=== PATIENT | female | born 1935 | race Caucasian/White ===

== ENCOUNTER 2016-04-20 14:56 | Inpatient (IN) ==
[2016-04-20] MEDS ORDERED: IPRATROPIUM/ALBUTEROL 3 ML AMPUL.NEB NEB ONE ×2 (15:07→15:08)
--- NOTE | 2016-04-20 15:10 | Emergency Department Note ---
SOB HPI - General Chief Complaint: Shortness of Breath/Dyspnea Stated Complaint: sob, pneumonia Time Seen by Provider: 04/20/16 15:01 Source: patient, EMS Mode of arrival: EMS Limitations: no limitations - History of Present Illness 80-year-old female who was seen on 04/13 a right middle lobe pneumonia. Patient refused admission. States she's been having increasing shortness of breath at home. key account manager arrived she's been put on CPAP. hx of copd and diabetes was put on rocephlin and zithromax (allergic to levaquin) afebrile - Related Data Home Medications Medication Instructions Recorded Confirmed Albuterol Sulfate 2.5 mg IH TID PRN 09/02/14 04/20/16 Aspirin [[place] Aspirin] 81 mg PO QDAY 09/02/14 04/20/16 Flaxseed [Flaxseed Oil] 1,300 mg PO QDAY 09/02/14 04/20/16 Omeprazole [PriLOSEC] 20 mg PO ACB 09/02/14 04/20/16 ezetimibe 10 mg tablet 10 mg PO QDAY 02/22/15 04/20/16 krill oil 500 mg capsule 500 mg PO DAILY 02/22/15 04/20/16 potassium chloride ER 20 mEq 20 meq PO ONCE 02/22/15 04/20/16 tablet,extended release(part/cryst) Ascorbic Acid [Vitamin C] 1,000 mg PO DAILY 04/20/16 04/20/16 Vitamin A 8,000 unit PO DAILY 04/20/16 04/20/16 Previous Rx's Medication Instructions Recorded Meclizine [Antivert] 25 mg PO TIDP PRN #20 tab 09/02/14 nitroglycerin 0.4 mg sublingual 0.4 mg SUBLINGUAL Q5M PRN #30 tab 09/22/14 tablet scopolamine 1.5 mg transdermal 1 patch TRANSDERMA Q3D PRN #3 patch 09/22/14 patch (1 mg over 3 days) insulin aspart 100 unit/mL 3 unit SUB-Q TID PRN #3 ml 11/16/14 subcutaneous cartridge levalbuterol HFA 45 mcg/actuation 1 inh INHALATION Q4 PRN 30 Days 07/15/15 aerosol inhaler Diabetic Shoes #1 each 09/22/15 lisinopril 5 mg tablet 5 mg PO QDAY #30 tab 12/20/15 pen needle, diabetic 32 gauge x See Dose Instructions .ROUTE 12/27/15" .MEDSUPPLY #100 each cefuroxime axetil 500 mg tablet 500 mg PO Q12H PRN 7 Days 01/06/16 insulin detemir 100 unit/mL (3 mL) 20 unit SUB-Q QDAY #15 ml 02/29/16 subcutaneous pen levothyroxine 25 mcg tablet 25 mcg PO QDAY 30 Days 02/29/16 torsemide 20 mg tablet See Dose Instructions PO QDAY #135 02/29/16 tab atorvastatin 80 mg tablet 80 mg PO ONCE 30 Days 03/27/16 budesonide-formoterol HFA 160 2 puff INHALATION BID #10.2 g 03/29/16 mcg-4.5 mcg/actuation aerosol inhaler hydrocodone 5 mg-acetaminophen 325 1 tab PO BID PRN #60 tab 04/07/16 mg tablet Azithromycin [Zithromax] 250 mg PO DAILY #6 tablet 04/13/16 Cefuroxime [Ceftin] 500 mg PO Q12 #20 tablet 04/13/16 Allergies Allergy/AdvReac Type Severity Reaction Status Date / Time levofloxacin [From LEVAQUIN] Allergy Intermediate TENDONITIS Verified 04/13/16 16:05 levothyroxine sodium Allergy Mild EYES Verified 04/13/16 16:05 [LEVOTHYROXINE SODIUM] liothyronine [LIOTHYRONINE] Allergy Mild FEET AND Verified 04/13/16 16:05 ANKLE EDEMA AND NOSE BLEED Bisphosphonates Allergy Unknown Unknown Verified 04/13/16 16:05 fentanyl [FENTANYL] Allergy Unknown OBTUNDED Verified 04/13/16 16:05 rosuvastatin [From Crestor] Allergy Unknown Unknown Verified 04/13/16 16:05 spironolactone Allergy Unknown Unknown Verified 04/13/16 16:05 trimethoprim [From Bactrim] Allergy Unknown Hives Verified 04/13/16 16:05 sulfamethoxazole AdvReac Mild RASH AND Verified 04/13/16 16:05 [From SEPTRA] ITCH morphine [MORPHINE] AdvReac Unknown GI Upset Verified 04/13/16 16:05 From MACROBID Allergy Intermediate Rash Uncoded 03/23/16 08:54 TAPE-CAN USE PAPER AdvReac Severe PEELS SKIN Uncoded 03/23/16 08:54 OFF From JANUVIA AdvReac Intermediate Nausea/Vomi Uncoded 03/23/16 08:54 ting Review of Systems All systems ED: reviewed and negative except as stated. Constitutional: Reports: fever Eyes: Denies: eye pain ENT ED: Denies: ear pain Cardiovascular: Denies: chest pain, palpitations Respiratory: Reports: cough, dyspnea Gastrointestinal: Denies: abdominal pain, nausea Genitourinary: Denies: as per HPI, urgency Past Medical History - Past Medical History Medical history: Reports: COPD, CVA, diabetes, myocardial infarction, other Surgical history ED: Reports: breast surgery, cholecystectomy, coronary bypass ( CABG) - Social History smoking status: Former smoker Alcohol use: Reports: None, Occasionally Drug use: Reports: none Physical Exam - General Limitations: no limitations General appearance: alert - Eye Eye exam: Present: normal appearance, PERRL - ENT ENT exam: normal exam, normal oropharynx - Neck Neck exam: Present: normal inspection, full ROM. Absent: trachea midline - Chest Chest inspection: Present: normal inspection, symmetric chest wall rise - Respiratory Respiratory exam: Present: normal lung sounds bilaterally, wheezes. Absent: respiratory distress - Cardiovascular Cardiovascular exam: Present: regular rate, normal rhythm - Abdominal Exam Abdominal exam: Present: soft. Absent: distention - Extremities Exam Extremities exam: Present: normal inspection, full ROM - Back Exam Back exam: Present: normal inspection, full ROM Course Vital Signs Temperature 98.0 F 04/20/16 14:57 Pulse Rate 138 H 04/20/16 14:57 Respiratory Rate 23 04/20/16 14:57 Blood Pressure 138/58 04/20/16 14:57 Pulse Oximetry (%) 100 04/20/16 14:57 Temperature 98.0 F 04/20/16 14:57 Pulse Rate 138 H 04/20/16 14:57 Respiratory Rate 30 H 04/20/16 15:34 Blood Pressure 138/58 04/20/16 14:57 Pulse Oximetry (%) 100 04/20/16 14:57 Shortness of Breath/Dyspnea - MDM Narrative Medical decision making narrative: see on 10/11 for rll pneumonia but refused admission. worst today with sob.. Chest xray show rll pneumonia abg's performed - Lab Data Result diagrams: 04/20/16 15:10 04/20/16 15:10 Disposition Referrals: Garrison Rodriguez PA-C [Primary Care Provider] -
--- NOTE | 2016-04-20 15:39 | XRay Report ---
HISTORY: Reason for Exam:dyspnea and right lower lobe pneumonia FINDINGS: There is a mild residual interstitial infiltrate in the right lower lobe. There has been moderate improvement since 04/13/16. There is blunting of the right costophrenic sulcus due to a residual small pleural effusion. The heart size is normal. There are clips in the mediastinum following prior coronary bypass surgery. There are also clips in the axillary portion of the right breast. Sclerotic bone is seen in the upper thoracic spine. This is a chronic stable finding. IMPRESSION: Improving right lower lobe pneumonia Interpreted and Authenticated by: Tj Bella 04/20/16
[2016-04-20] MEDS ORDERED: cefTRIAXone 1 GM in DEXTROSE 5% IN WATER 50 ML IV ONE (15:56)
[2016-04-20] MEDS ORDERED: AZITHROMYCIN 500 MG in DEXTROSE 5% IN WATER 250 ML IV ONE (15:56)
[2016-04-20 16:25] LABS: Basophils # (Auto) 0 K/mcL (0.0-0.3); Basophils % (Auto) 0.2 % (0.0-2.0); Eosinophils # (Auto) 0.3 K/mcL (0.0-0.7); Eosinophils % (Auto) 1.2 % (0.0-7.0); Granulocytes % (Auto) 76.5 % (38.0-78.0); Lymphocytes # (Auto) 2.9 K/mcL (1.5-4.8); Lymphocytes % (Auto) 12.5 % (15.5-49.0); Mean Cell Volume 91.5 fL (80.0-100.0); Mean Corpuscular HGB Conc 32.2 g/dL (31.0-36.0); Mean Corpuscular Hemoglobin 29.5 pg (26.0-34.0); Monocytes # (Auto) 2.3 K/mcL (0.1-0.9); Monocytes % (Auto) 9.6 % (1.0-9.0); Platelet Count 338 K/mcL (140-440); Red Cell Distribution Width 15.8 % (11.5-14.5)
[2016-04-20 16:47] LABS: Creatine Kinase MB 1.3 ng/ml (0-2.9)
[2016-04-20 16:51] LABS: proBNP 580.7 pg/ml (0-450)
[2016-04-20 16:54] LABS: ALT/SGPT 19 U/l (0-40); Albumin 3.2 gm/dL (3.2-5.2); Albumin/Globulin Ratio 1.1 (1.0-2.3); Alkaline Phosphatase 59 U/L (39-117); Blood Urea Nitrogen 28 mg/dl (8-23)
[2016-04-20] MEDS ORDERED: 0.9 % SODIUM CHLORIDE 1,000 ML IV ONE (17:33)
[2016-04-20] MEDS ORDERED: 0.9 % SODIUM CHLORIDE 1,000 ML IV SCH (17:45)
--- NOTE | 2016-04-20 20:29 | Internal Med History&Physical ---
Medical - H&P: HPI Patient information: Note initiated : 04/20/16 at 8:20 pm Service Date, if different from initiated Date: [] Patient: Cristine Francis 80 y/o F admitted on for sob, pneumonia. Chief Complaint: [] History of present illness: Ms. Francis is a 80 year old female with a complex past medical history who presents to the ER today for shortness of breath. The patient had presented on the 9 of this month, to the ER for shortness of breath, was diagnosed with a pneumonia. She was offered admission then, but she declined and signed her self AMA. The patient went home on po antibiotics ( ceftin/ zithromax), she seemed to be improving, however after 3-4 days she started to decline again. Since yesterday she has been more short of breath, on minimal exertion. The patient this Afternoon was sob at rest, and therefore decided to Call EMS, she was noted by EMS to be in respiratory distress and was started on cpap, which was transitioned to bipap in the ER. The patient on my eval still notes to be short of breath at rest worse with minimal activity, At baseline she is chr short of breath on regular activity. NYHA class 3 at baseline, uses 2 L of oxygen. The patietn also admits to having cough with yellow, brown sputum, no hemoptysis. - Constitutional Constitutional: Present: fatigue. Absent: chills, fever(s) - EENT Eyes: Absent: blurry vision, diplopia Nose, mouth and throat: Absent: bleeding gums, change in voice - Cardiovascular Cardiovascular: Present: rapid heart rate. Absent: chest pain, palpatations, pedal edema, syncope - Respiratory Respiratory: Present: cough, dyspnea, dyspnea on exertion, excessive phlegm production, change in phlegm color - Gastrointestinal Gastrointestinal: Present: nausea. Absent: constipation, vomiting - Genitourinary Genitourinary: Absent: hematuria, urinary frequency, urinary urgency - Musculoskeletal Musculoskeletal: Absent: stiffness, tingling - Integumentary Integumentary: Absent: wounds, jaundice - Neurological Neurological: Present: vertigo. Absent: focal weakness, frequent falls, headache(s), sensory deficit, syncope - Psychiatric Psychiatric: Absent: anxiety, confusion - Endocrine Endocrine: Absent: polydipsia, polyphagia, polyuria - Hematologic/Lymphatic Hematologic/Lymphatic: Absent: easy bleeding, easy bruising - Allergic/Immunologic Allergic/Immunologic: Absent: throat swelling, itchy eyes, uticaria Medical - H&P: [facility] Medical history: Medical History Bronchitis (Acute) Left against medical advice (Acute) RLL pneumonia (Acute) Skin tear of hand without complication (Acute) Upper respiratory infection (Acute) Urinary tract infection (Acute) Arteriosclerotic vascular disease (Chronic) Benign paroxysmal positional vertigo (Chronic) CVA (cerebral vascular accident) (Chronic 06/22/14) Chronic obstructive pulmonary disease (Chronic) Coronary artery disease (Chronic) Coronary atherosclerosis of [place] coronary vessel (Chronic) Diabetes mellitus (Chronic) 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) Dysmetabolic syndrome X (Chronic) Glaucoma (Chronic) Hiatal hernia (Chronic) History of compression fracture of spine (Chronic) History of peptic ulcer disease (Chronic) Hypercholesterolemia (Chronic) Hyperlipidemia (Chronic) Hypertension, essential (Chronic) Hypothyroidism (Chronic) Hypothyroidism, acquired (Chronic) Malignant neoplasm of breast (Chronic) Myocardial infarction, old (Chronic) Osteoarthritis (Chronic) Osteoporosis (Chronic) Uncontrolled type 2 diabetes mellitus (Chronic) Surgical history: Past Surgical History History of breast surgery (Chronic) History of cardiac cath (Chronic) History of hysterectomy (Chronic) History of open heart surgery (Chronic) Hx of coronary artery bypass graft (Chronic) S/P skin biopsy (Chronic 02/05/13) Family history: reviewed and not pertinent Social history: lives with significant other former smoker, social etoh Medical - H&P: Meds Home Medications Medication Instructions Recorded Confirmed Type Albuterol Sulfate 2.5 mg IH TID PRN 09/02/14 04/20/16 History Aspirin [[place] Aspirin] 81 mg PO QDAY 09/02/14 04/20/16 History Flaxseed [Flaxseed Oil] 1,300 mg PO QDAY 09/02/14 04/20/16 History Omeprazole [PriLOSEC] 20 mg PO ACB 09/02/14 04/20/16 History ezetimibe 10 mg tablet 10 mg PO QDAY 02/22/15 04/20/16 History krill oil 500 mg capsule 500 mg PO DAILY 02/22/15 04/20/16 History potassium chloride ER 20 mEq 20 meq PO ONCE 02/22/15 04/20/16 History tablet,extended release(part/cryst) Ascorbic Acid [Vitamin C] 1,000 mg PO DAILY 04/20/16 04/20/16 History Vitamin A 8,000 unit PO DAILY 04/20/16 04/20/16 History Allergies Allergy/AdvReac Type Severity Reaction Status Date / Time levofloxacin [From LEVAQUIN] Allergy Intermediate TENDONITIS Verified 04/13/16 16:05 levothyroxine sodium Allergy Mild EYES Verified 04/13/16 16:05 [LEVOTHYROXINE SODIUM] liothyronine [LIOTHYRONINE] Allergy Mild FEET AND Verified 04/13/16 16:05 ANKLE EDEMA AND NOSE BLEED Bisphosphonates Allergy Unknown Unknown Verified 04/13/16 16:05 fentanyl [FENTANYL] Allergy Unknown OBTUNDED Verified 04/13/16 16:05 rosuvastatin [From Crestor] Allergy Unknown Unknown Verified 04/13/16 16:05 spironolactone Allergy Unknown Unknown Verified 04/13/16 16:05 trimethoprim [From Bactrim] Allergy Unknown Hives Verified 04/13/16 16:05 sulfamethoxazole AdvReac Mild RASH AND Verified 04/13/16 16:05 [From SEPTRA] ITCH morphine [MORPHINE] AdvReac Unknown GI Upset Verified 04/13/16 16:05 From MACROBID Allergy Intermediate Rash Uncoded 03/23/16 08:54 TAPE-CAN USE PAPER AdvReac Severe PEELS SKIN Uncoded 03/23/16 08:54 OFF From JANUVIA AdvReac Intermediate Nausea/Vomi Uncoded 03/23/16 08:54 ting Medical - H&P: Exam - Constitutional Vitals: Temp Pulse Resp BP Pulse Ox 98.2 F 62 21 141/57 95 04/20/16 17:44 04/20/16 19:30 04/20/16 19:30 04/20/16 19:30 04/20/16 19:51 General appearance: cooperative, no no acute distress - Head Head exam: Present: atraumatic, normal inspection, normocephalic - Eye Eye exam: Present: PERRL. Absent: periorbital swelling, periorbital tenderness , scleral icterus - ENT ENT exam: Present: mucous membranes dry, normal exam, normal external ear exam - Neck Neck exam: Present: normal inspection - Respiratory Respiratory exam: Present: normal respiratory exam, prolonged expiratory phase, wheezes. Absent: accessory muscle use, respiratory distress, rhonchi - Cardiovascular Cardiovascular exam: Present: irregular rhythm, +S1, +S2, tachycardia - GI/Abdominal GI/Abdominal exam: Present: normal bowel sounds, soft. Absent: firm, guarding, rigid, tenderness - Extremities Exam Extremities exam: Present: Foot pink and warm, neurovascular intact. Absent: pedal edema, tenderness - Back Exam Back exam: Present: normal inspection. Absent: CVA tenderness (L), CVA tenderness (R), paraspinal tenderness - Neurological Exam Neurological exam: Present: alert, CN II-XII intact, oriented X3. Absent: motor sensory deficit - Psychiatric Psychiatric exam: Absent: agitated, anxious - Skin Skin exam: Present: normal color. Absent: cyanosis, rash, urticaria, vesicles Medical - H&P: Reslt - Labs CBC & Chem 7: 04/20/16 15:10 04/20/16 15:10 Labs: Short CBC 04/20/16 Range/Units 15:10 WBC 23.5 H (4.5-11.0) K/mcL Hgb 12.4 (12.0-15.0) g/dL Hct 38.4 (36.0-48.0) % Plt Count 338 (140-440) K/mcL BMP 04/20/16 15:10 Sodium 136 Potassium 3.1 L Chloride 92 L Carbon Dioxide 28 BUN 28 H Creatinine 1.6 H Glucose 136 H Calcium 8.7 Cardiac Enzymes 04/20/16 04/20/16 04/20/16 Range/Units 15:10 15:10 18:24 Total Creatine Kinase 29 (24-170) IU/L CK-MB (CK-2) 1.3 (0-2.9) ng/ml Troponin T 0.04 H* 0.03 (0-0.03) ng/ml Liver Function 04/20/16 Range/Units 15:10 Total Bilirubin 0.7 (0.0-1.0) mg/dL AST 19 (0-37) U/l ALT 19 (0-40) U/l Alkaline Phosphatase 59 (39-117) U/L Albumin 3.2 (3.2-5.2) gm/dL - ABG Interpretation Interpretation: respiratory alkalosis - EKG Data -: EKG Reviewed by Myself Rate: tachycardia - EKG Data Prior EKG available for review: yes When compared to previous EKG: there is no significant change EKG comments: 04/20/16 20:33 multiple pac/ variable HR, variable p waves, likely multifocal atrial tachycardia Medical - H&P: A/P (1) Sepsis Current visit: Yes Status: Acute (2) Acute and chronic respiratory failure Current visit: Yes Status: Acute (3) Demand ischemia of myocardium Current visit: Yes Status: Acute (4) RLL pneumonia Current visit: No Status: Acute (5) Hypertension, essential Current visit: No Status: Chronic (6) Uncontrolled type 2 diabetes mellitus Current visit: No Status: Chronic (7) COPD with acute exacerbation Current visit: Yes Status: Acute - Narrative A/P Narrative: The patient with multiple medical problems presented to the clinic with acute on chr respiratory failure, sepsis, secondary to pna and copd exacerbation. She does have elevated bnp, but clinmically seems to be euvolumic. Pneumonia- Await cultures, treat with IV rocephin and zithromax, monitor for response, if does not improve, escalate antibiotics Await cultures COPD exacerbation- Duonebs, IV steroids, zithromax, BIPAP support as needed. Sepsis- PNA, elevated hr, elevated wbc, treat with abx, monitor, bp st able, lactate not elevated. Chr resp failure- at 2L home oxygen, will continue oxygen supplementation for now. Mild elevation of troponin likley demand ischemia from copd and tachcyardia, troponin trending down, no chest pain. DVT hep s q Diet cardiac Code full DM- Sliding scale insulin, continue home dose of levemir Will resume home medications for chr medical conditions.
[2016-04-20] MEDS ORDERED: SENNOSIDES 1 TABLET PO PRN (20:45)
[2016-04-20] MEDS ORDERED: POTASSIUM CHLORIDE 20 MEQ TABLET PO SCH (20:45)
[2016-04-20] MEDS ORDERED: PROMETHAZINE 25 MG/ML VIAL IV PRN (20:45)
[2016-04-20] MEDS ORDERED: NITROGLYCERIN 0.4 MG TAB.SUBL SL PRN (20:45)
[2016-04-20] MEDS ORDERED: MECLIZINE 25 MG TABLET PO PRN (20:45)
[2016-04-20] MEDS ORDERED: ONDANSETRON 4 MG/2 ML VIAL IV PRN (20:45)
[2016-04-20] MEDS ORDERED: HYDROcodone/APAP 5/325MG TABLET PO PRN (20:45)
[2016-04-20] MEDS ORDERED: DEXTROSE 50% 50 ML VIAL IV PRN (20:45)
[2016-04-20] MEDS ORDERED: POTASSIUM CHLORIDE 40 MEQ in DEXTROSE 5% IN WATER 250 ML IV ONE (22:05)
[2016-04-20] MEDS: HEPARIN 5,000 UNIT/ML VIAL SQ SCH (22:49)
[2016-04-20] MEDS: INSULIN LISPRO 1 UNIT/0.01 ML UNIT SQ SCH (22:50)
[2016-04-20] MEDS: ATORVASTATIN 40 MG TABLET PO SCH (22:50)
[2016-04-20] MEDS: 0.9 % SODIUM CHLORIDE 10 ML SYRINGE IV SCH (22:52)
[2016-04-20] MEDS: methylPREDNISolone SOD SUCC 125 MG/2 ML VIAL IV SCH (22:53)
[2016-04-20] MEDS: IPRATROPIUM/ALBUTEROL 3 ML AMPUL.NEB NEB SCH (22:58)
[2016-04-21 00:10] LABS: Hemoglobin A1C 7.9 % HGB (4.0-6.0)
[2016-04-21] MEDS ORDERED: POTASSIUM CHLORIDE 40 MEQ in DEXTROSE 5% IN WATER 500 ML IV ONE (00:49)
[2016-04-21] MEDS ORDERED: POTASSIUM CHLORIDE 20 MEQ/10 ML VIAL IV ONE (01:01)
[2016-04-21] MEDS: IPRATROPIUM/ALBUTEROL 3 ML AMPUL.NEB NEB SCH ×5 (02:48→23:33)
[2016-04-21] MEDS: 0.9 % SODIUM CHLORIDE 10 ML SYRINGE IV SCH ×3 (05:36→21:14)
[2016-04-21] MEDS: methylPREDNISolone SOD SUCC 125 MG/2 ML VIAL IV SCH ×3 (05:36→21:14)
[2016-04-21 06:30] LABS: Mean Cell Volume 91.6 fL (80.0-100.0); Mean Corpuscular HGB Conc 32.1 g/dL (31.0-36.0); Mean Corpuscular Hemoglobin 29.4 pg (26.0-34.0); Platelet Count 282 K/mcL (140-440); Red Cell Distribution Width 15.7 % (11.5-14.5)
[2016-04-21 06:58] LABS: ALT/SGPT 15 U/l (0-40); Albumin 2.8 gm/dL (3.2-5.2); Albumin/Globulin Ratio 0.9 (1.0-2.3); Alkaline Phosphatase 66 U/L (39-117); Bilirubin,Direct < 0.2 mg/dL (0.0-0.3); Blood Urea Nitrogen 25 mg/dl (8-23); Gamma Glutamyl Transpeptidase 32 U/L (5-36); Magnesium 1.9 mg/dL (1.6-2.5); Phosphorous 3.4 mg/dL (2.7-4.5); Uric Acid 5.7 mg/dL (2.5-8.0)
[2016-04-21 07:32] LABS: Band Neutrophils % 10 % (0-10); Lymphocytes % 3 % (15-49); Monocytes % (Manual) 3 % (1-9); Platelet Estimate NORMAL (NORMAL); RBC Morphology NORMAL (NORMAL); Segmented Neutrophils % 84 % (38-78)
--- NOTE | 2016-04-21 07:57 | Internal Med Progress Note ---
Medical - PN: Subj Patient information: Note initiated : 04/21/16 at 7:54 am Service Date, if different from initiated Date: [] Patient: Cristine Francis 80 y/o F admitted on 04/20/16 for sob, pneumonia. Chief Complaint: [] Interval history: Patient seen examined, no acute overnight events HR improving still has Multifocal atrial tachycardia. Patient did not sleep well, but otherwise has no complaints Did not need bipap at nibght Oxygen needs increased when sleeping, but back to baseline 2 L in the morning. Labs reviewed, wbc improved. microbiology neg echo pending. Pertinent ROS: Denies headache, dizziness Denies chest pain, palpitations cough present, sob abset at rest. Denies abdominal pain, nausea or vomiting. - Constitutional Vitals: Vital Signs Temp Pulse Resp BP Pulse Ox 98.8 F 99 H 19 144/48 90 04/21/16 04:00 04/21/16 07:00 04/21/16 07:00 04/21/16 07:00 04/21/16 07:00 Period Temp Pulse Resp BP Sys/Coreas Pulse Ox Last 24 Hr 98.8 F-99.4 F 62-117 15-25 144-172/45-69 88-99 Intake and Output 04/20/16 04/21/16 04/21/16 21:59 05:59 13:59 Intake Total 1000 / 1300 50 / 50 Output Total 345 / 345 180 / 180 Balance 1000 / 1300 -295 / -295 -180 / -180 Weight 169 lb 12.8 oz Intake & Output: Intake & Output 04/20/16 04/21/16 04/21/16 21:59 05:59 13:59 Intake Total 1000 / 1300 50 / 50 Output Total 345 / 345 180 / 180 Balance 1000 / 1300 -295 / -295 -180 / -180 Weight 169 lb 12.8 oz Intake: IV 1000 / 1000 Sodium Chloride 0.9% 1, 1000 / 1000 000 ml @ Wide Open IV BOLUS ONE Rx#:[id number] Oral 50 / 50 Output: Urine Catheter Amount 345 / 345 180 / 180 Exam: Constitutional; Afebrile, cooperative, alert, not in distress. Eyes- No icterus, Pupils equal, reactive, No periorbital swelling Ears- Ext ear normal, hearing normal to conversation. Neck- Midline trachea, supple Respiratory system: Air Entry equal on both sides,improved air entry, but still prolonged exp phase CVS- Rate rhythm irregular, S1,S2 heard, no gallop, no rub. Abdomen- Soft nontender abdomen, no organomegaly, no tenderness, no guarding or rigidity, [employer]ER- AOOx3, moving all extremities, no focal deficit noted. Medical - PN: Obj Da - Labs CBC & Chem 7: 04/21/16 05:40 04/21/16 05:40 Labs: Abnormal Lab Results 04/21/16 04/21/16 05:40 05:40 WBC 17.4 H RBC 3.60 L Hgb 10.6 L Hct 33.0 L RDW 15.7 H Seg Neutrophils % 84 H Lymphocytes % 3 L Chloride 95 L BUN 25 H Creatinine 1.6 H Glucose 364 H Calcium 8.2 L Lactate Dehydrogenase 408 H Total Protein 5.8 L Albumin 2.8 L Albumin/Globulin Ratio 0.9 L Meds: Medications Acetaminophen/Hydrocodone Bitart ([place] 5/325mg) 1 tab PO BIDP PRN PRN Reason: Pain Albuterol/Ipratropium (Duoneb) 3 ml NEB Q4HRT [facility] Last Admin: 04/21/16 02:48 Dose: 3 ml Aspirin (Aspirin) 81 mg PO QDAY [facility] Atorvastatin Calcium (Lipitor) 80 mg PO HS [facility] Last Admin: 04/20/16 22:50 Dose: 80 mg Dextrose (Dextrose 50%) 0 ml IV UD PRN PRN Reason: Hypoglycemia Diagnostic Test (Pha) (Accu-Chek) 1 each FS ACHS [facility] Last Admin: 04/20/16 22:39 Dose: Not Given Ezetimibe (Zetia) 10 mg PO QDAY [facility] Heparin Sodium (Porcine) (Heparin) 5,000 unit SQ Q12 [facility] Last Admin: 04/20/16 22:49 Dose: 5,000 unit Azithromycin 250 mg/ Dextrose 250 mls @ 250 mls/hr IV DAILY [facility] Stop: 04/24/16 09:59 Ceftriaxone Sodium 1 gm/ (Dextrose) 50 mls @ 100 mls/hr IV DAILY [facility] Insulin Glargine (Lantus) 20 unit SQ DAILY [facility] Insulin Human Lispro (Humalog) 0 unit SQ ACHS [facility] PRN Reason: Protocol Levothyroxine Sodium (Synthroid) 25 mcg PO ACB [facility] Lisinopril (Zestril) 5 mg PO QDAY [facility] Meclizine HCl (Antivert) 25 mg PO TIDP PRN PRN Reason: Vertigo Methylprednisolone Sodium Succinate (Solu-Medrol) 62.5 mg IV Q8 [facility] Last Admin: 04/21/16 05:36 Dose: 62.5 mg Nitroglycerin (Nitrostat) 0.4 mg SL Q5M PRN PRN Reason: Chest Pain Ondansetron HCl (Zofran) 4 mg IV Q4-6HP PRN PRN Reason: Nausea And Vomiting Last Admin: 04/20/16 23:29 Dose: 4 mg Pantoprazole Sodium (Protonix) 40 mg IV QAMAC [facility] Promethazine HCl (Phenergan) 12.5 mg IV Q4-6HP PRN PRN Reason: Nausea And Vomiting Senna (Senokot) 2 tab PO HSP PRN PRN Reason: Constipation Sodium Chloride (Saline Flush) 10 ml IV Q8 [facility] Last Admin: 04/21/16 05:36 Dose: 10 ml Torsemide (Demadex) 20 mg PO DAILY [facility] Medical - PN: A/P - Time Spent With Patient Total time spent is greater than 50% in coordination of care (as documented) at patient's floor/unit and/or counseling patient: (1) Sepsis Status: Acute Current Visit: Yes (2) Acute and chronic respiratory failure Status: Acute Current Visit: Yes (3) Demand ischemia of myocardium Status: Acute Current Visit: Yes (4) RLL pneumonia Status: Acute Current Visit: No (5) Hypertension, essential Status: Chronic Current Visit: No (6) Uncontrolled type 2 diabetes mellitus Status: Chronic Current Visit: No (7) COPD with acute exacerbation Status: Acute Current Visit: Yes - Narrative A/P Narrative: The patient is stable no need for bipap overnight continue with IV antibiotics, rocephin and zithromax continue steroids and duonebs Monitor on telemeter for now, PT eval. If continues to improve tranasition ot oral steroids in AM, High glucose noted,- will increase dose of sliding scale insulin. d/c planning home vs snf. Medical - PN: Qual - VTE Deep Vein Thrombosis/Pulmonary Embolism Present on Admission: No
[2016-04-21] MEDS: LEVOTHYROXINE 25 MCG TABLET PO SCH (07:58)
[2016-04-21] MEDS: PANTOPRAZOLE 40 MG VIAL IV SCH (07:58)
[2016-04-21] MEDS: INSULIN LISPRO 1 UNIT/0.01 ML UNIT SQ SCH ×5 (08:14→21:03)
[2016-04-21] MEDS ORDERED: LISINOPRIL 5 MG TABLET PO SCH (09:00)
[2016-04-21] MEDS ORDERED: TORSEMIDE 10 MG TABLET PO SCH (09:00)
[2016-04-21] MEDS: ASPIRIN 81 MG TAB.CHEW PO SCH (09:02)
[2016-04-21] MEDS: EZETIMIBE 10 MG TABLET PO SCH (09:02)
[2016-04-21] MEDS: INSULIN GLARGINE, HUMAN 1 UNIT/0.01 ML SQ SCH (09:03)
[2016-04-21] MEDS: HEPARIN 5,000 UNIT/ML VIAL SQ SCH ×2 (09:03→21:04)
[2016-04-21] MEDS: cefTRIAXone 1 GM in DEXTROSE 5% IN WATER 50 ML IV SCH (09:03)
[2016-04-21] MEDS: AZITHROMYCIN 250 MG in DEXTROSE 5% IN WATER 250 ML IV SCH (12:51)
[2016-04-21] MEDS ORDERED: 0.9 % SODIUM CHLORIDE 500 ML IV ONE ×2 (13:09→14:38)
[2016-04-21] MEDS: ATORVASTATIN 40 MG TABLET PO SCH (21:02)
[2016-04-22] MEDS ORDERED: 0.9 % SODIUM CHLORIDE 500 ML IV ONE (03:03)
[2016-04-22] MEDS: IPRATROPIUM/ALBUTEROL 3 ML AMPUL.NEB NEB SCH ×6 (03:13→23:04)
[2016-04-22 05:41] LABS: Basophils # (Auto) 0 K/mcL (0.0-0.3); Basophils % (Auto) 0 % (0.0-2.0); Eosinophils # (Auto) 0.3 K/mcL (0.0-0.7); Eosinophils % (Auto) 1.3 % (0.0-7.0); Granulocytes % (Auto) 92.3 % (38.0-78.0); Lymphocytes # (Auto) 0.6 K/mcL (1.5-4.8); Mean Cell Volume 92.7 fL (80.0-100.0); Mean Corpuscular Hemoglobin 29.7 pg (26.0-34.0); Monocytes # (Auto) 0.7 K/mcL (0.1-0.9); Monocytes % (Auto) 3.4 % (1.0-9.0); Platelet Count 283 K/mcL (140-440); RBC 3.65 M/mcL (4.00-5.20); Red Cell Distribution Width 15.7 % (11.5-14.5)
[2016-04-22 06:10] LABS: ALT/SGPT 16 U/l (0-40); Albumin 2.7 gm/dL (3.2-5.2); Albumin/Globulin Ratio 0.8 (1.0-2.3); Alkaline Phosphatase 66 U/L (39-117); Bilirubin,Direct < 0.2 mg/dL (0.0-0.3); Blood Urea Nitrogen 35 mg/dl (8-23); Gamma Glutamyl Transpeptidase 28 U/L (5-36); Phosphorous 3.1 mg/dL (2.7-4.5); Uric Acid 6.7 mg/dL (2.5-8.0)
[2016-04-22] MEDS: 0.9 % SODIUM CHLORIDE 10 ML SYRINGE IV SCH ×3 (06:37→20:58)
[2016-04-22] MEDS: methylPREDNISolone SOD SUCC 125 MG/2 ML VIAL IV SCH (06:37)
[2016-04-22] MEDS: LEVOTHYROXINE 25 MCG TABLET PO SCH (08:22)
[2016-04-22] MEDS: PANTOPRAZOLE 40 MG VIAL IV SCH (08:22)
[2016-04-22] MEDS: INSULIN LISPRO 1 UNIT/0.01 ML UNIT SQ SCH ×5 (08:22→20:57)
[2016-04-22] MEDS: EZETIMIBE 10 MG TABLET PO SCH (08:35)
[2016-04-22] MEDS: ASPIRIN 81 MG TAB.CHEW PO SCH (08:35)
[2016-04-22] MEDS: cefTRIAXone 1 GM in DEXTROSE 5% IN WATER 50 ML IV SCH (09:17)
--- NOTE | 2016-04-22 09:50 | Internal Med Progress Note ---
Medical - PN: Subj Patient information: Note initiated : 04/22/16 at 9:48 am Service Date, if different from initiated Date: [] Patient: Cristine Francis 80 y/o F admitted on 04/20/16 for SOB, Pneumonia, Sepsis. Chief Complaint: [] Interval history: The patient seen examined, overnight events noted The patient has had 2 episodes of low bp, and poor urine output, which have responded to IV bolus fluids. The patient otherwise has no acute issues, no acute issues reported on tele besides tachcyardia. Pertinent ROS: Denies headache, dizziness Denies chest pain, palpitations cougp present, sob on exertion present generalized fatigue present. Denies abdominal pain, nausea or vomiting. Additional PMFSH (Level 3 Only): reviewed - Constitutional Vitals: Vital Signs Temp Pulse Resp BP Pulse Ox 97.8 F 99 H 18 140/50 93 04/22/16 04:00 04/22/16 06:52 04/22/16 06:52 04/22/16 05:56 04/22/16 06:52 Period Temp Pulse Resp BP Sys/Coreas Pulse Ox Last 24 Hr 97.6 F-98.6 F 85-106 13-31 90-159/44-75 88-100 Intake and Output 04/21/16 04/22/16 04/22/16 21:59 05:59 13:59 Intake Total 1840 / 1840 550 / 550 Output Total 480 / 480 305 / 305 Balance 1360 / 1360 245 / 245 Weight 174 lb 4.8 oz Intake & Output: Intake & Output 04/21/16 04/22/16 04/22/16 21:59 05:59 13:59 Intake Total 1840 / 1840 550 / 550 Output Total 480 / 480 305 / 305 Balance 1360 / 1360 245 / 245 Weight 174 lb 4.8 oz Intake: IV 1300 / 1300 500 / 500 Sodium Chloride 0.9% 500 1000 / 1000 500 / 500 ml @ Wide Open IV BOLUS ONE Rx#:[id number] Dextrose 5% in Water 250 250 / 250 ml @ 250 mls/hr IV DAILY TATYANA with Zithromax 250 mg Rx#:[id number] Dextrose 5% in Water 50 50 / 50 ml @ 100 mls/hr IV DAILY TATYANA with Rocephin 1 gm Rx #:[id number] Oral 540 / 540 50 / 50 Output: Urine Catheter Amount 480 / 480 305 / 305 Other: Meal Dinner Percent of Meal Consumed 75% Feeding Ability Assist with Tray Set Up Exam: Constitutional; Afebrile, cooperative, alert, not in distress. Eyes- No icterus, No periorbital swelling Ears- Ext ear normal, hearing normal to conversation. Neck- Midline trachea, supple Respiratory system: Air Entry equal on both sides, No crackles or wheezing, no rhonchi. CVS- Rate rhythm irregular, tachycardiac, s2,s2 present Abdomen- Soft nontender abdomen, no organomegaly, no tenderness, no guarding or rigidity, DOCUMENT MANAGER- AOOx3, moving all extremities, no focal deficit noted. Medical - PN: Obj Da - Labs CBC & Chem 7: 04/22/16 03:55 04/22/16 03:55 Labs: Abnormal Lab Results 04/22/16 04/22/16 04/21/16 03:55 03:55 05:40 WBC 21.1 H RBC 3.65 L Hgb 10.8 L Hct 33.9 L RDW 15.7 H Gran % 92.3 H Lymph % (Auto) 3.0 L Gran # 19.5 H Lymph # 0.6 L Seg Neutrophils % Lymphocytes % Chloride 95 L BUN 35 H 25 H Creatinine 2.0 H 1.6 H Glucose 272 H 364 H Calcium 8.1 L 8.2 L Lactate Dehydrogenase 260 H 408 H Total Protein 5.8 L Albumin 2.7 L 2.8 L Albumin/Globulin Ratio 0.8 L 0.9 L 04/21/16 05:40 WBC 17.4 H RBC 3.60 L Hgb 10.6 L Hct 33.0 L RDW 15.7 H Gran % Lymph % (Auto) Gran # Lymph # Seg Neutrophils % 84 H Lymphocytes % 3 L Chloride BUN Creatinine Glucose Calcium Lactate Dehydrogenase Total Protein Albumin Albumin/Globulin Ratio Meds: Medications Acetaminophen/Hydrocodone Bitart ([place] 5/325mg) 1 tab PO BIDP PRN PRN Reason: Pain Albuterol/Ipratropium (Duoneb) 3 ml NEB Q4HRT [facility] Last Admin: 04/22/16 06:49 Dose: 3 ml Aspirin (Aspirin) 81 mg PO QDAY [facility] Last Admin: 04/22/16 08:35 Dose: 81 mg Atorvastatin Calcium (Lipitor) 80 mg PO HS [facility] Last Admin: 04/21/16 21:02 Dose: 80 mg Dextrose (Dextrose 50%) 0 ml IV UD PRN PRN Reason: Hypoglycemia Diagnostic Test (Pha) (Accu-Chek) 1 each FS ACHS [facility] Last Admin: 04/22/16 08:22 Dose: 1 each Ezetimibe (Zetia) 10 mg PO QDAY [facility] Last Admin: 04/22/16 08:35 Dose: 10 mg Heparin Sodium (Porcine) (Heparin) 5,000 unit SQ Q12 [facility] Last Admin: 04/21/16 21:04 Dose: 5,000 unit Azithromycin 250 mg/ Dextrose 250 mls @ 250 mls/hr IV DAILY [facility] Stop: 04/24/16 09:59 Last Infusion: 04/21/16 17:38 Dose: Infused Ceftriaxone Sodium 1 gm/ (Dextrose) 50 mls @ 100 mls/hr IV DAILY [facility] Last Admin: 04/22/16 09:17 Dose: 100 mls/hr Insulin Glargine (Lantus) 20 unit SQ DAILY [facility] Last Admin: 04/21/16 09:03 Dose: 20 unit Insulin Human Lispro (Humalog) 0 unit SQ ACHS [facility] PRN Reason: Protocol Levothyroxine Sodium (Synthroid) 25 mcg PO ACB [facility] Last Admin: 04/22/16 08:22 Dose: 25 mcg Meclizine HCl (Antivert) 25 mg PO TIDP PRN PRN Reason: Vertigo Nitroglycerin (Nitrostat) 0.4 mg SL Q5M PRN PRN Reason: Chest Pain Ondansetron HCl (Zofran) 4 mg IV Q4-6HP PRN PRN Reason: Nausea And Vomiting Last Admin: 04/20/16 23:29 Dose: 4 mg Pantoprazole Sodium (Protonix) 40 mg IV QAMAC [facility] Last Admin: 04/22/16 08:22 Dose: 40 mg Symbicort ( Budesonide/Formoterol) 160/4.5 Mcg Inhaler 2 dose INH BID [facility] Prednisone (Prednisone) 40 mg PO QAC [facility] Promethazine HCl (Phenergan) 12.5 mg IV Q4-6HP PRN PRN Reason: Nausea And Vomiting Senna (Senokot) 2 tab PO HSP PRN PRN Reason: Constipation Sodium Chloride (Saline Flush) 10 ml IV Q8 [facility] Last Admin: 04/22/16 06:37 Dose: 10 ml Medical - PN: A/P - Time Spent With Patient Total time spent is greater than 50% in coordination of care (as documented) at patient's floor/unit and/or counseling patient: (1) Sepsis Status: Acute Current Visit: Yes (2) Acute and chronic respiratory failure Status: Acute Current Visit: Yes (3) RLL pneumonia Status: Acute Current Visit: No (4) Hypertension, essential Status: Chronic Current Visit: No (5) Uncontrolled type 2 diabetes mellitus Status: Chronic Current Visit: No (6) COPD with acute exacerbation Status: Acute Current Visit: Yes (7) Acute on chronic renal failure Status: Acute Current Visit: Yes - Narrative A/P Narrative: The patient sepsis is improving, will complete the course of IV antibiotics, continue rocephin and zithromax for now COPD is stable, no wheezing, maintaining oxygen on 2L conitnue dunebs, steroids, abx, and symbicort (pt wants to continue using it) Renal failure- Creat increased from 1.6 to 2.0, with decrease in urine output. STart on IV fluids saline, gentle hydration. hold diuretics, avoid bp meds for now. Check renal sonogram, check ua, urine lytes and prot creat ratio. this is likely from ATN following low bp episodes. Hypotension- likely from dehydration, responded well to fluids, IV fluids for now. Tachcyardia, MAt on ekg, chr, needs to be on beta blockers, will consider starting once the patient bp is more stable. Medical - PN: Qual - VTE Deep Vein Thrombosis/Pulmonary Embolism Present on Admission: No
[2016-04-22] MEDS: AZITHROMYCIN 250 MG in DEXTROSE 5% IN WATER 250 ML IV SCH (09:52)
[2016-04-22] MEDS: INSULIN GLARGINE, HUMAN 1 UNIT/0.01 ML SQ SCH (09:52)
[2016-04-22] MEDS: HEPARIN 5,000 UNIT/ML VIAL SQ SCH ×2 (09:53→20:57)
[2016-04-22 11:35] LABS: Appearance,Urine HAZY; Bacteria,Urine FEW /hpf (0); Bilirubin,Urine NEG (NEG); Color,Urine YELLOW; Glucose,Urine (UA) 50 mg/dL (NEG); Leukocyte Esterase,Urine NEG /uL (NEG); Mucus,Urine FEW /hpf (0); Nitrate,Urine NEG (NEG); Protein,Urine 30 mg/dL (NEG); Specific Gravity,Urine 1.014 (1.000-1.035); Urine Blood NEG mg/dL (<0.03); Urine Hyaline Cast 21 /lpf (0-2); Urine RBC 6 /hpf (0-1); Urine Squamous Epithelial Cell 0 /hpf (0-4); Urine Transitional Epi Cells 25 /hpf (0-2); Urine WBC 7 /hpf (0-4); Urobilinogen,Urine NEG (NEG)
--- NOTE | 2016-04-22 11:57 | Echocardiogram Report ---
ECHOCARDIOGRAM: 2-D and M-Mode echocardiography with cardiac Doppler and color flow imaging were performed with a [employer] Aplio MX. INDICATION: Multifocal atrial tachycardia. A diagnostic M-Mode tracing of the LV could not be obtained. Overall size of the RA, RV, LV, and aortic root appeared normal. LV wall thickness appeared mildly increased. Systolic performance appeared hyperdynamic. Estimated ejection fraction is 75%. The LA appeared mildly enlarged. The aortic root appeared __. The aortic valve appeared moderately calcified. Valve opening appeared adequate and there was no evidence for aortic stenosis or aortic regurgitation by Doppler interrogation. The mitral annulus and tip, anterior leaflet, displayed focal calcification, valve motion appeared normal. Doppler interrogation of LV inflow disclosed prolonged early diastolic deceleration time and \\"A\\" wave dominance indicating delayed LV relaxation. Mitral regurgitation, probably mild (1+) was noted. The pulmonic valve showed \\"a\\" wave diminution suggesting pulmonary hypertension. Pulmonary artery acceleration time appeared shortened. There was no evidence for pulmonic stenosis or pulmonic regurgitation. Tricuspid regurgitation, probably mild (1+), was demonstrated. No intracardiac shunting was appreciated. There was no evidence for pericardial effusion. The IVC was narrow and it showed normal respiratory variation. Calculated estimate of PA systolic pressure is normal at 25-30 mmHg. Multifocal atrial tachycardia was present. CONCLUSIONS: Moderate aortic leaflet calcification with adequate valve opening. Mild concentric LVH with hyperdynamic systolic performance. Focal calcification, mitral annulus and tip, anterior leaflet, with mitral regurgitation, probably mild (1+) and mild LA enlargement. Since previous study 10/22/13, LV systolic performance now appears hyperdynamic. Rate is increased and atrial activity appears less \\"organized.\\" (See accompanying M-Mode and Doppler reports for quantitation.) ECHOCARDIOGRAPHY M-MODE CALCULATIONS: HT: 5'0\\" WT: 170 BSA: 1.74 NORMALS AORTA: AORTIC ROOT 3.0 2.0-3.7 cm LEFT ATRIUM 4.4 1.9-4.0 cm MITRAL VALVE: EXCURSION 1.7 1.9-2.7 cm EPSS 0 <0.5 cm LT VENTRICLE: LVID (ED) 3.5-5.7 cm LVID (ES) SEPTAL THICKNESS 0.6-1.1 cm SEPTAL EXCURSION 0.3-0.8 cm LVPW THICKNESS 0.6-1.1 cm LVPW EXCURSION 0.9-1.4 cm MINOR AXIS FS 25%-40% RT VENTRICLE: RVID (ED) 0.9-2.6 cm(up to 3cm if LLD) QUALITATIVE DOPPLER FLOW STUDIES MITRAL VALVE MR, probably mild (1+) AORTIC VALVE -- TRICUSPID VALVE TR, probably mild (1+) PULMONIC VALVE QUANTITATIVE DOPPLER FLOW STUDIES SAMPLE SITES VELOCITIES PEAK PRESSURE VALVE AREA and/or VALVE WINDOW (PEAK,M/SEC) DROP (GRADIENT) PRESSURE HALF-TIME MV (Diastole) 1.0 (E) 1.5 (A) MV (Systole) 5.0 AO (Diastole) -- AO (Systole) 1.5 TV (Systole) 2.3 PV (Systole) -- PV (Diastole) -- MARISELA:ace Job ID: [id number] Doc ID: [id number] Jenaro De Los Santos MD
[2016-04-22] MEDS: 0.9 % SODIUM CHLORIDE 1,000 ML IV SCH (12:46)
[2016-04-22] MEDS: SYMBICORT INH SCH ×3 (12:59→20:39)
--- NOTE | 2016-04-22 13:51 | Ultrasound Report ---
History: Renal failure Findings: Right kidney measures 5.0 x 6.0 x 10.0 cm and the left measures 4.6 x 6.0 x 10.1 cm. There is some loss of parenchyma in the renal cortex bilaterally. No hydronephrosis is present. In the lower pole the right kidney there is a 7 x 12 x 13 mm echogenic structure which shadows. This appears to be a nonobstructing stone in the region of the lower pole calyx. In the lower pole the left kidney there is a well-circumscribed 1.7 x 2.0 x 2.0 cm echogenic mass which does not shadow. 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 No calculus is present in the left kidney. Urinary bladder is decompressed by De Leon catheter. We're unable to evaluate for flow of urine through the ureters into the bladder. Impression: Relatively thin renal cortex bilaterally consistent with chronic medical renal disease. Nonobstructing stone in the lower pole calyx of the right kidney. 2 cm echogenic mass in the lower pole of the left kidney which is probably an angiomyolipoma Interpreted and Authenticated by: Tj Bella 04/22/16
[2016-04-22 18:27] LABS: Blood Urea Nitrogen 42 mg/dl (8-23)
[2016-04-22] MEDS ORDERED: LORazepam 2 MG/ML VIAL IV PRN (19:05)
[2016-04-22] MEDS: ATORVASTATIN 40 MG TABLET PO SCH (20:57)
[2016-04-23] MEDS: 0.9 % SODIUM CHLORIDE 1,000 ML IV SCH ×2 (02:24→04:30)
[2016-04-23] MEDS: IPRATROPIUM/ALBUTEROL 3 ML AMPUL.NEB NEB SCH ×6 (03:06→22:42)
[2016-04-23] MEDS: 0.9 % SODIUM CHLORIDE 10 ML SYRINGE IV SCH ×3 (05:20→21:08)
[2016-04-23 06:21] LABS: Basophils # (Auto) 0 K/mcL (0.0-0.3); Basophils % (Auto) 0.1 % (0.0-2.0); Eosinophils # (Auto) 0.3 K/mcL (0.0-0.7); Eosinophils % (Auto) 1.4 % (0.0-7.0); Granulocytes % (Auto) 89.1 % (38.0-78.0); Lymphocytes # (Auto) 0.6 K/mcL (1.5-4.8); Lymphocytes % (Auto) 2.5 % (15.5-49.0); Mean Cell Volume 91.7 fL (80.0-100.0); Mean Corpuscular HGB Conc 32.2 g/dL (31.0-36.0); Mean Corpuscular Hemoglobin 29.5 pg (26.0-34.0); Monocytes # (Auto) 1.7 K/mcL (0.1-0.9); Monocytes % (Auto) 6.9 % (1.0-9.0); Platelet Count 276 K/mcL (140-440); Red Cell Distribution Width 15.8 % (11.5-14.5)
[2016-04-23 07:04] LABS: ALT/SGPT 23 U/l (0-40); Albumin 2.7 gm/dL (3.2-5.2); Alkaline Phosphatase 60 U/L (39-117); Bilirubin,Direct < 0.2 mg/dL (0.0-0.3); Blood Urea Nitrogen 44 mg/dl (8-23); Gamma Glutamyl Transpeptidase 29 U/L (5-36); Magnesium 1.9 mg/dL (1.6-2.5); Phosphorous 3.1 mg/dL (2.7-4.5); Uric Acid 7.3 mg/dL (2.5-8.0)
[2016-04-23] MEDS ORDERED: predniSONE 20 MG TABLET PO SCH (08:00)
[2016-04-23] MEDS: SYMBICORT INH SCH ×4 (08:15→20:29)
[2016-04-23] MEDS: INSULIN GLARGINE, HUMAN 1 UNIT/0.01 ML SQ SCH (08:26)
[2016-04-23] MEDS: INSULIN LISPRO 1 UNIT/0.01 ML UNIT SQ SCH ×4 (08:27→21:09)
[2016-04-23] MEDS: cefTRIAXone 1 GM in DEXTROSE 5% IN WATER 50 ML IV SCH (08:27)
[2016-04-23] MEDS: AZITHROMYCIN 250 MG in DEXTROSE 5% IN WATER 250 ML IV SCH (08:27)
[2016-04-23] MEDS: LEVOTHYROXINE 25 MCG TABLET PO SCH (09:51)
[2016-04-23] MEDS: PANTOPRAZOLE 40 MG VIAL IV SCH (09:51)
[2016-04-23] MEDS: EZETIMIBE 10 MG TABLET PO SCH (09:51)
[2016-04-23] MEDS: ASPIRIN 81 MG TAB.CHEW PO SCH (09:51)
[2016-04-23] MEDS: HEPARIN 5,000 UNIT/ML VIAL SQ SCH ×2 (09:51→21:08)
[2016-04-23] MEDS ORDERED: TORSEMIDE 10 MG TABLET PO ONE (09:52)
[2016-04-23] MEDS ORDERED: SODIUM CHLORIDE NASAL 1 SPRAY BOTTLE NAS PRN (09:56)
--- NOTE | 2016-04-23 09:58 | Internal Med Progress Note ---
Medical - PN: Subj Patient information: Note initiated : 04/23/16 at 9:56 am Service Date, if different from initiated Date: [] Patient: Cristine Francis 80 y/o F admitted on 04/20/16 for SOB, Pneumonia, Sepsis. Chief Complaint: [] Interval history: The patient seen examined sitting comfortably in the chair having breakfast, slept ok last night Was concerned about her missing he dose of torsemide last night, educated at length that given her renal dysfunction, this medication was held. This AM again she is concerned that her medication being held will lead her to fluid overload. She was quite adamant on needing her torsemide atleast a lower dose. Otherwise she remains tachcardic, EKG with Multifocal atrial tachcyardia. Pertinent ROS: Denies headache, dizziness Denies chest pain, palpitations Denies cough, sob on acitivity is present nasal congestion present Denies abdominal pain, nausea or vomiting. - Constitutional Vitals: Vital Signs Temp Pulse Resp BP Pulse Ox 98.0 F 112 H 18 131/71 95 04/23/16 04:00 04/23/16 07:40 04/23/16 07:40 04/23/16 06:00 04/23/16 07:40 Period Temp Pulse Resp BP Sys/Coreas Pulse Ox Last 24 Hr 97.7 F-98.5 F 95-120 14-26 104-158/46-99 92-100 Intake and Output 04/22/16 04/23/16 04/23/16 21:59 05:59 13:59 Intake Total 641 / 641 600 / 600 Output Total 200 / 200 170 / 170 30 / 30 Balance 441 / 441 430 / 430 -30 / -30 Weight 177 lb 8 oz Intake & Output: Intake & Output 04/22/16 04/23/16 04/23/16 21:59 05:59 13:59 Intake Total 641 / 641 600 / 600 Output Total 200 / 200 170 / 170 30 / 30 Balance 441 / 441 430 / 430 -30 / -30 Weight 177 lb 8 oz Intake: IV 641 / 641 600 / 600 Sodium Chloride 0.9% 1, 341 / 341 600 / 600 000 ml @ 75 mls/hr IV . [id number] TATYANA Rx#:[id number] Dextrose 5% in Water 250 250 / 250 ml @ 250 mls/hr IV DAILY TATYANA with Zithromax 250 mg Rx#:[id number] Dextrose 5% in Water 50 50 / 50 ml @ 100 mls/hr IV DAILY TATYANA with Rocephin 1 gm Rx #:[id number] Output: Urine Catheter Amount 200 / 200 170 / 170 30 / 30 Exam: Constitutional; Afebrile, cooperative, alert, not in distress, obese Eyes- No icterus, Pupils equal, reactive, No periorbital swelling Ears- Ext ear normal, hearing normal to conversation. Neck- Midline trachea, supple Respiratory system: Air Entry equal on both sides, No crackles or wheezing, no rhonchi. CVS- Rate tachycardic, rhythm irregular, s1, s2 heard. Abdomen- Soft nontender abdomen, no organomegaly, no tenderness, no guarding or rigidity, NAPPER TENDER- AOOx3, moving all extremities, no focal deficit noted. Medical - PN: Obj Da - Labs CBC & Chem 7: 04/23/16 04:18 04/23/16 04:18 Labs: Abnormal Lab Results 04/23/16 04/23/16 04/22/16 04:18 04:18 17:10 WBC 24.2 H RBC 3.40 L Hgb 10.1 L Hct 31.2 L RDW 15.8 H Gran % 89.1 H Lymph % (Auto) 2.5 L Gran # 21.6 H Lymph # 0.6 L [place] # 1.7 H Seg Neutrophils % Lymphocytes % Chloride BUN 44 H 42 H Creatinine 2.0 H 2.3 H Glucose 152 H 308 H Calcium 8.1 L 8.0 L Lactate Dehydrogenase 308 H Total Protein 5.5 L Albumin 2.7 L Albumin/Globulin Ratio Urine Protein Urine Glucose (UA) Urine RBC Urine WBC Ur Transition Epith Cell Urine Bacteria Hyaline Casts U [place] Prot/Creat Ratio 04/22/16 04/22/16 04/22/16 11:00 10:59 03:55 WBC RBC Hgb Hct RDW Gran % Lymph % (Auto) Gran # Lymph # [place] # Seg Neutrophils % Lymphocytes % Chloride BUN 35 H Creatinine 2.0 H Glucose 272 H Calcium 8.1 L Lactate Dehydrogenase 260 H Total Protein Albumin 2.7 L Albumin/Globulin Ratio 0.8 L Urine Protein 30 A Urine Glucose (UA) 50 A Urine RBC 6 H Urine WBC 7 H Ur Transition Epith Cell 25 H Urine Bacteria Few A Hyaline Casts 21 H U [place] Prot/Creat Ratio 0.21 H 04/22/16 04/21/16 04/21/16 03:55 05:40 05:40 WBC 21.1 H 17.4 H RBC 3.65 L 3.60 L Hgb 10.8 L 10.6 L Hct 33.9 L 33.0 L RDW 15.7 H 15.7 H Gran % 92.3 H Lymph % (Auto) 3.0 L Gran # 19.5 H Lymph # 0.6 L [place] # Seg Neutrophils % 84 H Lymphocytes % 3 L Chloride 95 L BUN 25 H Creatinine 1.6 H Glucose 364 H Calcium 8.2 L Lactate Dehydrogenase 408 H Total Protein 5.8 L Albumin 2.8 L Albumin/Globulin Ratio 0.9 L Urine Protein Urine Glucose (UA) Urine RBC Urine WBC Ur Transition Epith Cell Urine Bacteria Hyaline Casts U [place] Prot/Creat Ratio Meds: Medications Acetaminophen/Hydrocodone Bitart ([place] 5/325mg) 1 tab PO BIDP PRN PRN Reason: Pain Albuterol/Ipratropium (Duoneb) 3 ml NEB Q4HRT [facility] Last Admin: 04/23/16 07:39 Dose: 3 ml Aspirin (Aspirin) 81 mg PO QDAY [facility] Last Admin: 04/23/16 09:51 Dose: 81 mg Atorvastatin Calcium (Lipitor) 80 mg PO HS [facility] Last Admin: 04/22/16 20:57 Dose: 80 mg Dextrose (Dextrose 50%) 0 ml IV UD PRN PRN Reason: Hypoglycemia Diagnostic Test (Pha) (Accu-Chek) 1 each FS ACHS [facility] Last Admin: 04/23/16 08:20 Dose: 1 each Ezetimibe (Zetia) 10 mg PO QDAY [facility] Last Admin: 04/23/16 09:51 Dose: 10 mg Heparin Sodium (Porcine) (Heparin) 5,000 unit SQ Q12 [facility] Last Admin: 04/23/16 09:51 Dose: 5,000 unit Azithromycin 250 mg/ Dextrose 250 mls @ 250 mls/hr IV DAILY [facility] Stop: 04/24/16 09:59 Last Admin: 04/23/16 08:27 Dose: 250 mls/hr Ceftriaxone Sodium 1 gm/ (Dextrose) 50 mls @ 100 mls/hr IV DAILY [facility] Last Admin: 04/23/16 08:27 Dose: 100 mls/hr Sodium Chloride (Sodium Chloride 0.9%) 1,000 mls @ 75 mls/hr IV .[id number] [facility] Stop: 04/23/16 12:39 Last Admin: 04/23/16 04:30 Dose: 75 mls/hr Insulin Glargine (Lantus) 20 unit SQ DAILY [facility] Last Admin: 04/23/16 08:26 Dose: 20 unit Insulin Human Lispro (Humalog) 0 unit SQ ACHS [facility] PRN Reason: Protocol Last Admin: 04/23/16 08:27 Dose: 3 unit Levothyroxine Sodium (Synthroid) 25 mcg PO ACB [facility] Last Admin: 04/23/16 09:51 Dose: 25 mcg Lorazepam (Ativan) 0.5 mg IV ONCE PRN PRN Reason: ANXIETY/SEDATION Meclizine HCl (Antivert) 25 mg PO TIDP PRN PRN Reason: Vertigo Metoprolol Tartrate (Lopressor) 25 mg PO BID [facility] Nitroglycerin (Nitrostat) 0.4 mg SL Q5M PRN PRN Reason: Chest Pain Ondansetron HCl (Zofran) 4 mg IV Q4-6HP PRN PRN Reason: Nausea And Vomiting Last Admin: 04/20/16 23:29 Dose: 4 mg Pantoprazole [facility] ([facility]ix) [facility] Last Admin: 04/23/16 09:51 Dose: 40 mg Symbicort ( Budesonide/Formoterol) 160/4.5 Mcg Inhaler 2 dose INH BID [facility] Last Admin: 04/23/16 08:22 Dose: 2 [facility]) [facility] Admin: 04/23/16 09:51 Dose: 40 mg Promethazine HCl (Phenergan) 12.5 mg IV Q4-6HP PRN PRN Reason: Nausea And Vomiting Senna (Senokot) 2 tab PO HSP PRN PRN Reason: Constipation Sodium Chloride (Saline Flush) 10 ml IV Q8 [facility] Last Admin: 04/23/16 05:20 Dose: Not Given Medical - PN: A/P - Time Spent With Patient Total time spent is greater than 50% in coordination of care (as documented) at patient's floor/unit and/or counseling patient: (1) Acute and chronic respiratory failure Status: Acute Current Visit: Yes (2) RLL pneumonia Status: Acute Current Visit: No (3) Hypertension, essential Status: Chronic Current Visit: No (4) Uncontrolled type 2 diabetes mellitus Status: Chronic Current Visit: No (5) COPD with acute exacerbation Status: Acute Current Visit: Yes (6) Acute on chronic renal failure Status: Acute Current Visit: Yes - Narrative A/P Narrative: The patient wbc count is high, but clinically she continues to improve AT near baseline oxygen requirement, needs high oxygen during the night, likely has significant KAYLA the patient is on oral steroids and duonebs for her copd, continue same, PNA treated with Rocephin and zithromax, D 3 of antibiotics today. Renal failure, worsened yesterday evening but better today, monitor, urine output is around 30cc per hour, on IV fluids, continue same, demadex one dose given today as per pt request. renal usg reviewed, urine na was < 20 so likely pre renal, Echo did not show elevated cvp, normal lvef noted. Multifocal atrial tachycardia - HR high, start on low dose of metoprolol and monitor. DM - Glucose high, on lantus and sliding scale insulin. Dispo- if renal function continues to improve, may d/c in AM, will likely need snf given poor functional capacity. DVT hep sq Medical - PN: Qual - VTE Deep Vein Thrombosis/Pulmonary Embolism Present on Admission: No
[2016-04-23] MEDS: METOPROLOL TARTRATE 25 MG TABLET PO SCH ×2 (10:07→21:08)
[2016-04-23] MEDS: ATORVASTATIN 40 MG TABLET PO SCH (21:09)
[2016-04-24] MEDS: IPRATROPIUM/ALBUTEROL 3 ML AMPUL.NEB NEB SCH ×3 (02:15→10:46)
[2016-04-24] MEDS: 0.9 % SODIUM CHLORIDE 10 ML SYRINGE IV SCH (06:00)
[2016-04-24 06:06] LABS: Basophils # (Auto) 0 K/mcL (0.0-0.3); Basophils % (Auto) 0 % (0.0-2.0); Eosinophils # (Auto) 0.1 K/mcL (0.0-0.7); Eosinophils % (Auto) 0.5 % (0.0-7.0); Granulocytes % (Auto) 86.4 % (38.0-78.0); Lymphocytes # (Auto) 0.5 K/mcL (1.5-4.8); Lymphocytes % (Auto) 2.4 % (15.5-49.0); Mean Cell Volume 90.5 fL (80.0-100.0); Mean Corpuscular HGB Conc 34.2 g/dL (31.0-36.0); Mean Corpuscular Hemoglobin 30.9 pg (26.0-34.0); Monocytes # (Auto) 2.4 K/mcL (0.1-0.9); Monocytes % (Auto) 10.7 % (1.0-9.0); Platelet Count 262 K/mcL (140-440); RBC 3.49 M/mcL (4.00-5.20); Red Cell Distribution Width 15.3 % (11.5-14.5)
[2016-04-24 06:33] LABS: ALT/SGPT 42 U/l (0-40); Albumin/Globulin Ratio 1.2 (1.0-2.3); Alkaline Phosphatase 62 U/L (39-117); Bilirubin,Direct < 0.2 mg/dL (0.0-0.3); Blood Urea Nitrogen 45 mg/dl (8-23); Gamma Glutamyl Transpeptidase 55 U/L (5-36); Magnesium 1.9 mg/dL (1.6-2.5); Phosphorous 3.6 mg/dL (2.7-4.5); Uric Acid 7.6 mg/dL (2.5-8.0)
[2016-04-24] MEDS: SYMBICORT INH SCH (07:25)
[2016-04-24] MEDS: LEVOTHYROXINE 25 MCG TABLET PO SCH (07:55)
[2016-04-24] MEDS: PANTOPRAZOLE 40 MG VIAL IV SCH (07:55)
[2016-04-24] MEDS: INSULIN LISPRO 1 UNIT/0.01 ML UNIT SQ SCH ×2 (08:07→13:10)
[2016-04-24] MEDS: predniSONE 20 MG TABLET PO SCH ×2 (08:49→10:36)
[2016-04-24] MEDS: ASPIRIN 81 MG TAB.CHEW PO SCH (08:49)
[2016-04-24] MEDS: METOPROLOL TARTRATE 25 MG TABLET PO SCH (08:50)
[2016-04-24] MEDS: EZETIMIBE 10 MG TABLET PO SCH (08:50)
[2016-04-24] MEDS: HEPARIN 5,000 UNIT/ML VIAL SQ SCH (08:50)
[2016-04-24] MEDS: INSULIN GLARGINE, HUMAN 1 UNIT/0.01 ML SQ SCH (08:50)
[2016-04-24] MEDS ORDERED: TORSEMIDE 10 MG TABLET PO SCH (09:00)
[2016-04-24] MEDS: cefTRIAXone 1 GM in DEXTROSE 5% IN WATER 50 ML IV SCH (10:00)
[2016-04-24] MEDS: AZITHROMYCIN 250 MG in DEXTROSE 5% IN WATER 250 ML IV SCH (11:00)
--- NOTE | 2016-04-24 12:33 | Discharge Summary ---
Medical - DS: Prov Patient information: Note initiated : 04/24/16 at 12:28 pm Service Date, if different from initiated Date: [] Patient: Cristine Francis 80 y/o F admitted on 04/20/16 for SOB, Pneumonia, Sepsis. Chief Complaint: [] Date of admission: 04/20/16 20:42 Discharge date: 04/24/16 Primary care physician: [f_Reg Prim Care Provider] Admitting clinician: Samantha Ibanez Discharging clinician: Samantha Ibanez Medical - DS: Meds - Discharge Medications Prescriptions: Azithromycin [Zithromax] 250 mg PO DAILY #2 tablet Cefuroxime [Ceftin] 500 mg PO Q12 #4 tablet Metoprolol Tartrate [Lopressor] 25 mg PO BID #60 tablet predniSONE [Prednisone] 10 mg PO ONCE #11 tablet Active and Home Medications: Home Medications Albuterol Sulfate 2.5 mg IH TID PRN 09/02/14 [History Confirmed 04/20/16 Last Taken Unknown] Aspirin [[place] Aspirin] 81 mg PO QDAY 09/02/14 [History Confirmed 04/20/16 Last Taken Unknown] Flaxseed [Flaxseed Oil] 1,300 mg PO QDAY 09/02/14 [History Confirmed 04/20/16 Last Taken Unknown] Meclizine [Antivert] 25 mg PO TIDP PRN #20 tab 09/02/14 [Rx Confirmed 04/20/16 Last Taken Unknown] Omeprazole [PriLOSEC] 20 mg PO ACB 09/02/14 [History Confirmed 04/20/16 Last Taken Unknown] nitroglycerin 0.4 mg sublingual tablet 0.4 mg SUBLINGUAL Q5M PRN #30 tab [Rx Confirmed 04/20/16 Last Taken Unknown] scopolamine 1.5 mg transdermal patch (1 mg over 3 days) 1 patch TRANSDERMA Q3D PRN #3 patch 09/22/14 [Rx Confirmed 04/20/16 Last Taken Unknown] insulin aspart 100 unit/mL subcutaneous cartridge 3 unit SUB-Q TID PRN #3 ml [Rx Confirmed 04/20/16 Last Taken Unknown] ezetimibe 10 mg tablet 10 mg PO QDAY 02/22/15 [History Confirmed 04/20/16 Last Taken Unknown] krill oil 500 mg capsule 500 mg PO DAILY 02/22/15 [History Confirmed 04/20/16 Last Taken Unknown] potassium chloride ER 20 mEq tablet,extended release(part/cryst) 20 meq PO ONCE 02/22/15 [History Confirmed 04/20/16 Last Taken Unknown] levalbuterol HFA 45 mcg/actuation aerosol inhaler 1 inh INHALATION Q4 PRN 30 Days 07/15/15 [Rx Confirmed 04/20/16 Last Taken Unknown] lisinopril 5 mg tablet 5 mg PO QDAY #30 tab 12/20/15 [Rx Confirmed 04/20/16 Last Taken Unknown] cefuroxime axetil 500 mg tablet 500 mg PO Q12H PRN 7 Days 01/06/16 [Rx Confirmed 04/20/16 Last Taken Unknown] insulin detemir 100 unit/mL (3 mL) subcutaneous pen 20 unit SUB-Q QDAY #15 ml [Rx Confirmed 04/20/16 Last Taken Unknown] torsemide 20 mg tablet See Dose Instructions PO QDAY #135 tab 02/29/16 [Rx Confirmed 04/20/16 Last Taken Unknown] atorvastatin 80 mg tablet 80 mg PO ONCE 30 Days 03/27/16 [Rx Confirmed 04/20/16 Last Taken Unknown] budesonide-formoterol HFA 160 mcg-4.5 mcg/actuation aerosol inhaler 2 puff INHALATION BID #10.2 g 03/29/16 [Rx Confirmed 04/20/16 Last Taken Unknown] hydrocodone 5 mg-acetaminophen 325 mg tablet 1 tab PO BID PRN #60 tab 04/07/16 [ Rx Confirmed 04/20/16 Last Taken Unknown] Azithromycin [Zithromax] 250 mg PO DAILY #6 tablet 04/13/16 [Rx Confirmed Last Taken Unknown] Cefuroxime [Ceftin] 500 mg PO Q12 #20 tablet 04/13/16 [Rx Confirmed 04/20/16 Last Taken Unknown] Ascorbic Acid [Vitamin C] 1,000 mg PO DAILY 04/20/16 [History Confirmed Last Taken Unknown] Vitamin A 8,000 unit PO DAILY 04/20/16 [History Confirmed 04/20/16 Last Taken Unknown] Symbicort 160-4.5 Mcg Inhaler 2 inh INH BID 04/22/16 [History Confirmed 02/18/ 17 Last Taken Unknown] levothyroxine 25 mcg tablet 25 mcg PO QDAY 30 Days 04/24/16 [Rx Last Taken Unknown] Medical - DS: Hosp Hospital course: Mr. Francis is a 80 year old female who presented to the hospital for acute onset shortness of breath, noted to be in hypoxic respiratory failure in the ER and placed on bipap. She was admitted to the hospital with diagnosis of acute on chr resp failure due to copd, and pneumonia. COPD exacerbation/ Acute on chr resp failuire- secondary to pna, patient at baseline has poor functionality, nyha class 4, but still lives home. she was treated with bipap, oxygen, IV steroids and duonebs. She responded to treatment very well. On discharge she has not needed bipap for 72 hrs and is near baseline. PNA- diagnosed last week was on oral meds at home, after she declined admission last time. X ray showed improving pna, continue antibiotics ceftin and zithromax for 2 more days. Microbiology is negative. Acute on chr renal failure. Baseline creat is 1.7 ( in mar 2016, was 0.8 last year) She had worsening renal failure, whic was prerenal. treated with holding demadex, and lisinopril. Lisinopril has been held at discharge untill renal function recovers. Patient creat on discharge is 1.7, USG kidney neg, Patient was tachycardic in the hospital/ EKG shows multifocal atrial tachycardia likely secondary to stimulants and copd- Started on metoprolol 25mg bid with good control continue same for now. The rest of the patients condition in the hospital remained stable, The patient is very weak and was advised SNF placement for rehab. The patient did not want to go to snf and declined same. wanted to go home, Understands risks involved by adamant to go home. will d/c home with home physicial therapy. The rest of patients condition was stable. Discharge diagnosis: copd exacerbation/ Pneumonia/ Renal failure. - Time Spent with Patient Total time spent providing and/or coordinating discharge services: Greater than 30 minutes Medical - DS: Exam - Constitutional Vitals: Vital Signs Temp Pulse Pulse Resp BP BP Pulse Ox 04/24/16 11:00 83 20 86/46 100 04/24/16 10:48 88 22 04/24/16 09:00 88 22 122/61 99 04/24/16 08:00 98.3 F 115 H 22 145/51 92 04/24/16 07:32 100 H 20 92 04/24/16 07:00 108 H 28 H 146/56 94 04/24/16 06:00 94 H 20 131/66 100 04/24/16 05:00 86 19 140/64 100 04/24/16 04:00 98.4 F 120 H 24 148/55 96 04/24/16 03:00 102 H 24 146/55 99 04/24/16 02:00 101 H 22 157/68 99 04/24/16 01:00 97 H 20 116/56 98 04/24/16 00:00 97.8 F 98 H 20 131/51 99 04/23/16 23:00 102 H 27 H 157/56 98 04/23/16 22:48 111 H 22 04/23/16 22:00 100 H 23 142/67 97 04/23/16 21:00 114 H 23 158/74 2 L 04/23/16 20:00 98.2 F 100 H 24 139/67 97 04/23/16 19:00 113 H 26 H 145/61 96 04/23/16 18:46 114 H 20 04/23/16 18:39 93 04/23/16 18:00 98.7 F 106 H 24 160/58 95 04/23/16 17:00 96 H 19 142/52 96 04/23/16 16:00 98.4 F 97 H 18 128/53 95 04/23/16 15:02 98 H 19 04/23/16 15:00 88 20 104/55 97 04/23/16 14:55 97 04/23/16 14:00 87 19 120/63 96 04/23/16 13:00 99 H 22 145/58 96 Intake and Output 04/23/16 04/24/16 04/24/16 21:59 05:59 13:59 Intake Total 1900 / 1900 100 / 100 1250 / 1250 Output Total 495 / 495 408 / 408 410 / 410 Balance 1405 / 1405 -308 / -308 840 / 840 Intake: IV 1300 / 1300 Sodium Chloride 0.9% 1, 1000 / 1000 000 ml @ 75 mls/hr IV . [id number] [facility] Rx#:[id number] Dextrose 5% in Water 250 250 / 250 ml @ 250 mls/hr IV DAILY TATYANA with Zithromax 250 mg Rx#:[id number] Dextrose 5% in Water 50 50 / 50 ml @ 100 mls/hr IV DAILY TATYANA with Rocephin 1 gm Rx #:[id number] Oral 600 / 600 100 / 100 1250 / 1250 Output: Urine Catheter Amount 495 / 495 408 / 408 410 / 410 Other: Meal Dinner Breakfast Percent of Meal Consumed 75% 100% Feeding Ability Independent # Bowel Movements 1 Weight 180 lb 6.4 oz Additional comments: Constitutional; Afebrile, cooperative, alert, not in distress. Eyes- No icterus, Pupils equal, reactive, No periorbital swelling Ears- Ext ear normal, hearing hard to conversation. Neck- Midline trachea, supple Respiratory system: Air Entry equal on both sides, No crackles or wheezing, no rhonchi. CVS- Rate normal rhythm irregular, S1,S2 heard, no gallop, no rub. Abdomen- Soft nontender abdomen, no organomegaly, no tenderness, no guarding or rigidity, [employer]- AOOx3, moving all extremities, no focal deficit noted. 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 Labs on day of discharge: Labs from last 24 hours 04/24/16 04/24/16 04:00 04:00 WBC 22.6 H RBC 3.49 L Hgb 10.8 L Hct 31.6 L MCV 90.5 MCH 30.9 MCHC 34.2 RDW 15.3 H Plt Count 262 MPV 9.4 Gran % 86.4 H Lymph % (Auto) 2.4 L Kimball % (Auto) 10.7 H Eos % (Auto) 0.5 Baso % (Auto) 0 Gran # 19.6 H Lymph # 0.5 L Kimball # 2.4 H Eos # 0.1 Baso # 0 Sodium 144 Potassium 4.5 Chloride 106 Carbon Dioxide 23 Anion Gap 15.0 BUN 45 H Creatinine 1.7 H GFR Calculation 28 Glucose 103 Uric Acid 7.6 Calcium 8.3 L Phosphorus 3.6 Magnesium 1.9 Total Bilirubin 0.2 Direct Bilirubin < 0.2 GGT 55 H AST 38 H ALT 42 H Alkaline Phosphatase 62 Lactate Dehydrogenase 365 H Total Protein 5.6 L Albumin 3.0 L Globulin 2.6 Albumin/Globulin Ratio 1.2 Triglycerides 152 H Preliminary micro results at discharge 04/23/16 04:18 Blood Culture - Preliminary Blood 04/23/16 01:20 Blood Culture - Preliminary Blood Medical - DS: A/P - Patient/Caregiver Discharge Instructions Activity: increase activity as tolerated, wear oxygen at all times Diet: Cardiac Additional Instructions: Follow up with PCP in 7-10 days Take medications as prescribed Go to ER if worsening shortness of breath. Keep self well hydrated, follow low salt diet. - Problem Maintenance (1) Acute and chronic respiratory failure Status: Acute (2) RLL pneumonia Status: Acute (3) Hypertension, essential Status: Chronic (4) Uncontrolled type 2 diabetes mellitus Status: Chronic Qualifiers: Diabetes mellitus complication status: with unspecified complications Diabetes mellitus group home insulin use: with oysterman use Qualified Code(s) : E11.8 - Type 2 diabetes mellitus with unspecified complications (5) COPD with acute exacerbation Status: Acute (6) Acute on chronic renal failure Status: Acute - Follow up Plan Follow up with: Garrison Rodriguez PA-C [Primary Care Provider] - Disposition: Home Health Service Prognosis: Fair Rehab Potential: Fair I certify that the patient requires SNF services: No Overall status at discharge: patient is progressing back to baseline Medical - DS: Qual - VTE Deep Vein Thrombosis/Pulmonary Embolism Present on Admission: No
== END 2016-04-24 13:40 | disposition home health service (06) | DRG 871 ==
LOC: ED 14:56 → ICU 20:40
PROVIDERS: ADMIT Internal Medicine; ATTEND Internal Medicine